=== PATIENT | female | born 1995 | race Caucasian/White ===

== ENCOUNTER 2022-10-02 07:13 | Inpatient (IN) ==
[2022-10-02] MEDS ORDERED: LIDOCAINE 1% LOCAL 20 ML VIAL INFIL PRN (08:39)
[2022-10-02] MEDS ORDERED: OXYTOCIN 30 UNITS/500 ML BAG IV PRN (08:39)
[2022-10-02] MEDS ORDERED: CALCIUM CARBONATE 500 MG CHEWABLE TAB PO PRN (08:44)
[2022-10-02] MEDS: LACTATED RINGER'S 1,000 ML IV PRN (09:14)
[2022-10-02] MEDS: FAMOTIDINE 20 MG TAB PO SCH (09:15)
[2022-10-02] MEDS: CALCIUM CARBONATE 500 MG CHEWABLE TAB PO PRN (09:15)
[2022-10-02 09:25] LABS: Hematocrit (blood only) 35.2 % (37.0-47.0); Hemoglobin 11.7 g/dl (12.0-16.0); Mean Corpuscular Hemoglobin 28.3 pg (25.0-34.0); Mean Corpuscular Hgb Conc 33.2 g/dL (32.0-36.0); Mean Corpuscular Volume 85.2 fL (80.0-100.0); Mean Platelet Volume 9.5 fL (9.4-12.4); Platelet Count 168 K/uL (130-400); RDW Coefficient of Variation 18.5 % (11.5-14.5); RDW Standard Deviation 57.1 fL (36.4-46.3); Red Blood Count 4.13 M/uL (4.20-5.40); White Blood Count 10.51 K/ul (4.8-10.8)
[2022-10-02] MEDS ORDERED: VANCOMYCIN HCL 1,000 MG in SODIUM CHLORIDE 0.9% 250 ML IV STA (09:55)
--- NOTE | 2022-10-02 09:59 | History & Physical Report ---
Date of Service October 02, 2022 Assessment & Plan Admission and Anticipated Discharge Date Admission Date: October 02, 2022 History of Present Illness Chief Complaint: induction of labor Primary Care Provider: MANA[employer] PCP 27 F P1001 at 40.3 weeks admitted for induction of labor for post-dates . GBS is negative and Covid is negative. Allergies Allergy/AdvReac Type Severity Reaction Status Date / Time Penicillins Allergy Hives Verified 10/02/22 07:41 Home Medications Medication Instructions Recorded Confirmed Type calcium carbonate 200 mg calcium 200 mg PO BID 10/02/22 10/02/22 History (500 mg) chewable tablet (Tums) docusate sodium 100 mg capsule 100 mg PO DAILY 10/02/22 10/02/22 History famotidine-Ca carb-mag hydrox 10 1 tab PO DAILY 10/02/22 10/02/22 History mg-800 mg-165 mg chewable tablet (Pepcid Complete) prenat.vits,romulo,urd-duub-qoplo 1 tab PO DAILY 10/02/22 10/02/22 History Patient History Medical History Anxiety (normal spontaneous vaginal delivery) 05/10/2020 Surgical History 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 H/O right knee surgery 2016 Meniscus repair Social History Smoking Status: Never smoker Hx Alcohol Use: No Hx Substance Use: No Preferred Language: Nigerien [employer] Required: No Beliefs That Will Affect Care: None marital status: Current Living Situation: Spouse Current Living Situation Comment: and son Assistive Devices: None 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 Review of Systems All systems reviewed & are unremarkable except as noted in HPI & below Physical Exam Constitutional: WD/WN, vitals as above Eyes: PERRL, conjunctivae normal, anicteric sclerae Respiratory: normal respiratory effort, lungs clear to auscultation Cardiovascular: Rate/Rhythm: regular rate Gastrointestinal (Abdomen): Percussion/Palpation: abdomen soft Skin: no rashes, warm and dry Neurologic: patellar DTR's 2+ bilat, sensation intact Psychiatric: A+Ox3, euthymic affect Genitourinary: Manual OB Exam: + cervical dilation 1 cm, + cervical effacement 50% and + station high OB Exam Monitor Tracing: + external FHT monitor used, + external uterine monitor used, + category I and + normal FHT variability Will start Cytotec 50 mcg PO every 4 hours for cervical ripening Results & Data Vital Signs (Past 12 Hours) Vital Signs Temp Pulse Resp BP 10/02/22 07:52 90 125/72 10/02/22 07:51 36.7 C 18 Laboratory Results 10/02/22 10/02/22 07:20 09:05 WBC 10.51 RBC 4.13 L Hgb 11.7 L Hct 35.2 L MCV 85.2 MCH 28.3 MCHC 33.2 RDW Std Deviation 57.1 H RDW Coeff of Devika 18.5 H Plt Count 168 MPV 9.5 SARS-CoV-2, RNA, NAAT NEGATIVE Monitoring External Monitor Cat 1
[2022-10-02] MEDS: miSOPROStoL 50 MCG TAB PO SCH ×2 (10:03→15:21)
--- NOTE | 2022-10-02 15:00 | Labor Progress Brief Note ---
Date of Service October 02, 2022 Assessment & Plan Admission and Anticipated Discharge Date Admission Date: October 02, 2022 Physical Exam Genitourinary: Manual OB Exam: + cervical dilation 1 cm, + cervical effacement 50% and + station high OB Exam Monitor Tracing: + external FHT monitor used, + external uterine monitor used, + category I and + normal FHT variability will place Astudillo balloon in cervix for ripening Results & Data Vital Signs (Past 12 Hours) Vital Signs Temp Pulse Resp BP 10/02/22 12:04 18 10/02/22 12:04 36.6 C 18 10/02/22 12:06 65 120/71 10/02/22 07:29 18 10/02/22 07:29 18 10/02/22 07:52 90 125/72 10/02/22 07:51 36.7 C 18
--- NOTE | 2022-10-02 15:31 | Labor Progress Brief Note ---
Date of Service October 02, 2022 Assessment & Plan Admission and Anticipated Discharge Date Admission Date: October 02, 2022 Physical Exam Genitourinary: Manual OB Exam: + cervical dilation 1 cm, + cervical effacement 50% and + station high OB Exam Monitor Tracing: + external FHT monitor used, + external uterine monitor used, + category I and + normal FHT variability Astudillo with 35 ml saline placed in cervix Results & Data Vital Signs (Past 12 Hours) Vital Signs Temp Pulse Resp BP 10/02/22 14:57 18 10/02/22 14:57 37.0 C 18 10/02/22 15:00 73 124/73 10/02/22 12:04 18 10/02/22 12:04 36.6 C 18 10/02/22 12:06 65 120/71 10/02/22 07:29 18 10/02/22 07:29 18 10/02/22 07:52 90 125/72 10/02/22 07:51 36.7 C 18
[2022-10-02] MEDS ORDERED: BUTORPHANOL TARTRATE 1 MG/ML VIAL IV PRN (20:25)
[2022-10-02] MEDS: VANCOMYCIN HCL 1,000 MG in SODIUM CHLORIDE 0.9% 250 ML IV PRN (22:43)
[2022-10-03] MEDS ORDERED: FAMOTIDINE 20 MG TAB PO ONE (00:09)
[2022-10-03] MEDS: CALCIUM CARBONATE 500 MG CHEWABLE TAB PO PRN ×2 (00:15→16:39)
[2022-10-03] MEDS: miSOPROStoL 50 MCG TAB PO SCH ×2 (06:28→07:46)
[2022-10-03] MEDS ORDERED: OXYTOCIN 30 UNITS/500 ML BAG IV PRN ×2 (09:17→19:16)
--- NOTE | 2022-10-03 09:24 | Obstetrical Progress Note ---
Date of Service October 03, 2022 Assessment & Plan Admission and Anticipated Discharge Date Admission Date: October 02, 2022 Subjective Patient was seen and examined. G2, P1 at 40 weeks and 4 days of gestation she was admitted yesterday by Dr. Waddell for induction of labor for postdates. She has received p.o. Cytotec and then Astudillo balloon which came out around 3 AM this morning. She had another dose of Cytotec since this morning at 6:30 AM. She feels contractions every 4 minutes and are not very painful. She desires to eat breakfast. GBS positive, received vancomycin last night Vital signs stable afebrile, heart rate category 1, Cervix is 2 to 3 cm, 50% effaced, posterior, soft, head is at -3 station Plan to start oxytocin, continue with vancomycin, epidural for pain and AROM when able, All questions were answered. Results & Data Vital Signs (Past 12 Hours) Vital Signs Temp Pulse Resp BP 10/03/22 07:00 36.8 C 20 10/03/22 09:17 72 127/71 10/03/22 07:01 69 126/60 10/03/22 03:37 36.7 C 54 L 16 117/65 10/02/22 22:48 36.7 C 65 16 113/56 L
[2022-10-03] MEDS: FAMOTIDINE 20 MG TAB PO SCH ×2 (10:20→19:43)
[2022-10-03] MEDS: VANCOMYCIN HCL 1,000 MG in SODIUM CHLORIDE 0.9% 250 ML IV PRN (10:20)
[2022-10-03] MEDS ORDERED: Nursing to Pharmacy Communication SCH (11:15)
[2022-10-03] MEDS ORDERED: SODIUM CHLORIDE 0.9% PF INJ 10 ML VIAL ONE (13:47)
[2022-10-03] MEDS ORDERED: BUPIVACAINE 0.25% PF 30 ML VIAL ONE (13:47)
[2022-10-03] MEDS ORDERED: LIDOCAINE 2%/EPINEPHRINE 1:200,000 20 ML PF ONE (13:47)
[2022-10-03] MEDS ORDERED: fentaNYL 2MCG/ML ROPIVACAINE 1.25MG/ML 100 ML BAG EPI ONE (13:47)
[2022-10-03] MEDS ORDERED: fentaNYL citrate PF 100 MCG/2 ML VIAL ONE (13:47)
[2022-10-03] MEDS ORDERED: ePHEDrine sulfate 50 MG/ML AMP ONE (13:48)
[2022-10-03] MEDS: LACTATED RINGER'S 1,000 ML IV PRN ×2 (14:02→15:01)
--- NOTE | 2022-10-03 14:48 | Anesthesiology Consultation ---
Date of Service October 03, 2022 Assessment & Plan (1) Encounter for pre-operative examination: Chart Review Chart Review: Acceptable Risk for Labor Epidural History Height/Weight Height: 6 ft Weight: 109.769 kg Allergies Allergy/AdvReac Type Severity Reaction Status Date / Time Penicillins Allergy Hives Verified 10/02/22 07:41 Medications Home Medications Medication Instructions Recorded Confirmed Last Taken calcium carbonate 200 mg calcium 200 mg PO BID 10/02/22 10/02/22 10/01/22 (500 mg) chewable tablet (Tums) docusate sodium 100 mg capsule 100 mg PO DAILY 10/02/22 10/02/22 10/01/22 famotidine-Ca carb-mag hydrox 10 1 tab PO DAILY 10/02/22 10/02/22 10/01/22 mg-800 mg-165 mg chewable tablet (Pepcid Complete) prenat.vits,romulo,zhw-[id number]-[id number] 1 tab PO DAILY 10/02/22 10/02/22 10/01/22 Active Medications Generic Name Dose Route Start Last Admin Trade Name Nilsonq PRN Reason Stop Dose Admin Calcium Carbonate 1,000 mg 10/02/22 09:15 10/03/22 00:15 Calcium Carbonate 500 Mg Chewable Tab PO 11/01/22 08:43 1,000 mg BID PRN Administration Indigestion Famotidine 20 mg 10/02/22 09:00 10/03/22 10:20 Famotidine 20 Mg Tab PO 11/01/22 08:59 Not Given QAM GELY Lactated Ringer's 1,000 mls @ 125 mls/hr 10/02/22 08:39 10/03/22 14:02 Lr IV 10/04/22 08:38 999 mls/hr .Q8H PRN Administration L&D Protocol Protocol Vancomycin HCl 1,000 mg/ 270 mls @ 200 mls/hr 10/02/22 20:49 10/03/22 11:41 Sodium Chloride IV 10/12/22 20:48 Infused Q12H PRN Infusion GBS(+) Until Delivery Oxytocin 30 units in 500 mls @ 8 mls/hr 10/03/22 09:17 10/03/22 12:30 Pitocin IV 10/05/22 09:16 0.48 units/hr .Q24H PRN 8 mls/hr Labor Induction/Augmentation Titration Protocol 0.48 UNITS/HR Past Medical History Medical History Anxiety (normal spontaneous vaginal delivery) 05/10/2020 Past Surgical History Surgical History 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
[2022-10-03] MEDS ORDERED: LIDOCAINE 2%/EPINEPHRINE 1:200,000 20 ML PF EPI STA (15:17)
[2022-10-03] MEDS ORDERED: ROPIVACAINE 0.5% PF 5 MG/ML 20 ML VIAL EPI PRN (15:17)
[2022-10-03] MEDS ORDERED: SODIUM CHLORIDE 0.9% PF INJ 10 ML VIAL EPI PRN (15:17)
[2022-10-03] MEDS ORDERED: NALOXONE HCL 0.4 MG/1 ML VIAL/CARP IV PRN (15:17)
[2022-10-03] MEDS ORDERED: BUPIVACAINE 0.25% PF 30 ML VIAL EPI PRN (15:17)
[2022-10-03] MEDS ORDERED: NALOXONE HCL 1 MG in SODIUM CHLORIDE 0.9% 1000ML 1,000 ML IV PRN (15:17)
[2022-10-03] MEDS ORDERED: ePHEDrine sulfate 50 MG/ML AMP IV PRN (15:17)
[2022-10-03] MEDS ORDERED: fentaNYL 2MCG/ML ROPIVACAINE 1.25MG/ML 100 ML BAG EPI PRN (15:17)
[2022-10-03] MEDS ORDERED: fentaNYL citrate PF 100 MCG/2 ML VIAL EPI PRN (15:17)
[2022-10-03] MEDS ORDERED: ONDANSETRON INJ 2 MG/ML 2 ML VIAL IV PRN (15:17)
[2022-10-03] MEDS ORDERED: BUPIVACAINE 0.25% PF 30 ML VIAL EPI STA (15:17)
[2022-10-03] MEDS ORDERED: LIDOCAINE 2% MPF LOCAL 5 ML VIAL EPI PRN (15:17)
[2022-10-03] MEDS ORDERED: SODIUM CHLORIDE 0.9% PF INJ 10 ML VIAL EPI STA (15:17)
--- NOTE | 2022-10-03 16:12 | Obstetrical Progress Note ---
Date of Service October 03, 2022 Assessment & Plan Admission and Anticipated Discharge Date Admission Date: October 02, 2022 Subjective Patient is comfortable, received epidural for pain VE; 4/ 60%-2, AROM'ed clear fluid FHR categ I Contractions q 2-3 min, Oxytocin is at 4miu/min Continue to monitor closely Results & Data Vital Signs (Past 12 Hours) Vital Signs Temp Pulse Resp BP Pulse Ox 10/03/22 07:00 36.8 C 20 10/03/22 16:05 67 100 10/03/22 16:02 78 84 L 10/03/22 16:00 69 99 10/03/22 15:57 67 112/58 L 10/03/22 15:55 73 87 L 10/03/22 15:50 62 100 10/03/22 15:51 49 L 114/64 10/03/22 15:47 60 115/63 10/03/22 15:45 71 100 10/03/22 15:42 65 114/62 10/03/22 15:40 68 99 10/03/22 15:37 65 110/63 10/03/22 15:35 64 20 100 10/03/22 15:31 62 107/68 10/03/22 15:30 65 100 10/03/22 15:26 71 92 10/03/22 15:25 65 107/65 99 10/03/22 15:23 65 112/66 10/03/22 15:21 71 111/69 10/03/22 15:20 68 20 99 10/03/22 15:19 66 111/68 10/03/22 15:18 61 108/59 L 10/03/22 15:15 73 100 10/03/22 15:16 74 106/73 10/03/22 15:14 75 112/56 L 10/03/22 15:13 20 10/03/22 15:13 20 10/03/22 15:12 58 L 116/58 L 10/03/22 15:10 72 97 10/03/22 15:05 73 100 10/03/22 15:03 74 90 10/03/22 15:00 69 100 10/03/22 14:56 76 89 L 10/03/22 14:55 69 100 10/03/22 14:50 61 100 10/03/22 14:44 62 100 10/03/22 14:39 69 98 10/03/22 14:36 71 92 10/03/22 14:34 66 100 10/03/22 14:29 64 99 10/03/22 14:24 61 100 10/03/22 14:19 74 99 10/03/22 14:14 68 100 10/03/22 14:09 70 100 10/03/22 14:04 65 99 10/03/22 13:41 36.8 C 78 20 118/75 10/03/22 12:30 68 119/70 10/03/22 11:33 36.8 C 66 20 113/53 L 10/03/22 10:31 76 121/70 10/03/22 09:17 36.8 C 72 20 127/71 10/03/22 07:01 69 126/60
[2022-10-03] MEDS ORDERED: BENZOCAINE 20% AER SPR 82.5 GM CAN EXT PRN (19:16)
[2022-10-03] MEDS ORDERED: MEASLES, MUMPS & RUBELLA VIRUS VIAL SQ ONE (19:16)
[2022-10-03] MEDS ORDERED: IBUPROFEN 600 MG TAB PO PRN (19:16)
[2022-10-03] MEDS ORDERED: bisacodyL 10 MG SUPP PR PRN (19:16)
[2022-10-03] MEDS ORDERED: ACETAMINOPHEN 325 MG TAB PO PRN (19:16)
[2022-10-03] MEDS ORDERED: HYDROCORTISONE ACETATE 25 MG SUPP PR PRN (19:16)
[2022-10-03] MEDS ORDERED: oxyCODONE/ACETAMINOPHEN 5mg/325mg TAB PO PRN (19:16)
[2022-10-03] MEDS ORDERED: DIPHTHERIA/TETANUS/PERTUSSIS Vaccine (Tdap, Age 7+yrs) 0.5mL SYR/VL IM ONE (19:16)
--- NOTE | 2022-10-03 19:22 | Delivery Summary ---
Vaginal Delivery Summary Date of Service October 03, 2022 Vaginal Delivery Summary Patient was found to be fluid dilated and desire to push. She pushed through 2 contractions and deliver the head without difficulty. Anterior/ left shoulder was coming with the head spontaneously. It was delivered and then body without difficulty. There was a nuchal cord evaluated which was reduced and the baby was handed off to the mother. Motor nerves were suctioned, the cord was clamped times 2 and cut at 1 minute delay. The baby was vigorously moving and crying at that point. Then the vagina and perineum were checked for lacerations. There was a small second-degree laceration at the posterior fourchette. It was repaired with 2-0 Vicryl, bringing the mucosa together, superficial level of muscles continuously and the skin on the subcuticular fashion. Excellent hemostasis achieved. The placenta was found in the vagina, spontaneously delivered as intact and complete. The uterus was explored and found to be empty, the lower segment was cleared of all clots and debris, uterus firm and EBL was 200 mL. The mom and baby tolerated procedure well. The sponge needle instrument count was correct x2. There was a viable female infant, Apgars 8/9 and weight is pending. No complications happened and I was present during whole procedure.
--- NOTE | 2022-10-03 20:18 | Anesthesia Procedure Note ---
Date of Service October 03, 2022 Anesthesia Post Epidural Note Vital Signs Vital Signs: Temp Pulse Resp BP Pulse Ox O2 Del Method 36.7 C 71 18 129/61 85 L Room Air 10/03/22 19:10 10/03/22 20:14 10/03/22 19:55 10/03/22 20:14 10/03/22 19:03 10/02/22 19:45 Notes Mental Status: alert / awake / arousable and participated in evaluation Nausea / Vomiting: adequately controlled Pain: adequately controlled Airway Patency, RR, SpO2: stable & adequate BP & HR: stable & adequate Hydration State: stable & adequate Neuraxial Anesthesia: was administered and sensory block is resolving Anesthetic Complications: no major complications apparent Epidural: Removed without complications and With tip intact
[2022-10-03] MEDS ORDERED: DOCUSATE SODIUM 100 MG CAP PO SCH (21:00)
[2022-10-04 06:23] LABS: Hematocrit (blood only) 31.2 % (37.0-47.0); Hemoglobin 10.3 g/dl (12.0-16.0); Mean Corpuscular Hemoglobin 27.9 pg (25.0-34.0); Mean Corpuscular Volume 84.6 fL (80.0-100.0); Platelet Count 148 K/uL (130-400); RDW Standard Deviation 55.3 fL (36.4-46.3); Red Blood Count 3.69 M/uL (4.20-5.40); White Blood Count 12.49 K/ul (4.8-10.8)
[2022-10-04] MEDS ORDERED: FERROUS SULFATE 325 MG TAB PO SCH ×2 (08:00)
[2022-10-04] MEDS ORDERED: PRENATAL VITAMIN 1 TAB PO SCH ×2 (08:00)
--- NOTE | 2022-10-04 08:04 | Obstetrical Progress Note ---
Date of Service October 04, 2022 Assessment & Plan (1) Normal course: Continue routine PP course Dc home today if baby is discharged and stable Subjective Ambulation: ambulating normally Voiding: no voiding problems Passing Gas:: Yes Diet Tolerance:: regular diet Lochia:: Moderate Feeding Type:: breast feeding Current Pain Level(1-10): 5 Patient comfortable in bed, bonding well with baby. Would like to go home today if baby is discharged Breast and formula feeding Pain controlled with Tylenol, cannot take NSAIDs due to history of gastric bypass (sleeve) Physical Exam Constitutional WD/WN, vitals as above Respiratory normal respiratory effort, lungs clear to auscultation Cardiovascular RRR, no murmur, no edema Gastrointestinal (Abdomen) normal bowel sounds, soft, nontender, no hepatosplenomegaly Fundus below U Results & Data Vital Signs (Past 12 Hours) Vital Signs Temp Pulse Pulse Pulse Resp BP BP 10/04/22 07:50 36.5 C 98 H 18 123/79 10/04/22 04:01 36.5 C 65 16 98/59 L 10/03/22 22:20 36.6 C 86 20 120/75 10/03/22 21:10 18 10/03/22 20:40 18 10/03/22 20:10 18 10/03/22 21:10 92 H 124/63 10/03/22 20:55 73 122/59 L 10/03/22 20:40 112/55 L 10/03/22 20:25 74 108/57 L 10/03/22 20:14 71 129/61 Pulse Ox O2 Del Method 10/04/22 07:50 98 Room Air 10/04/22 04:01 Room Air 10/03/22 22:20 96 Room Air 10/03/22 21:10 10/03/22 20:40 10/03/22 20:10 10/03/22 21:10 10/03/22 20:55 10/03/22 20:40 10/03/22 20:25 10/03/22 20:14 Laboratory Results Laboratory Results WBC 12.49 K/ul (4.8-10.8) H 10/04/22 05:55 RBC 3.69 M/uL (4.20-5.40) L 10/04/22 05:55 Hgb 10.3 g/dl (12.0-16.0) L 10/04/22 05:55 Hct 31.2 % (37.0-47.0) L 10/04/22 05:55 MCV 84.6 fL (80.0-100.0) 10/04/22 05:55 MCH 27.9 pg (25.0-34.0) 10/04/22 05:55 MCHC 33.0 g/dL (32.0-36.0) 10/04/22 05:55 RDW Std Deviation 55.3 fL (36.4-46.3) H 10/04/22 05:55 RDW Coeff of Devika 18.0 % (11.5-14.5) H 10/04/22 05:55 Plt Count 148 K/uL (130-400) 10/04/22 05:55 MPV 10.0 fL (9.4-12.4) 10/04/22 05:55 SARS-CoV-2, RNA, NAAT NEGATIVE (NEGATIVE) 10/02/22 07:20
[2022-10-04] MEDS ORDERED: bisacodyL 10 MG SUPP PR PRN (08:17)
[2022-10-04] MEDS ORDERED: oxyCODONE/ACETAMINOPHEN 5mg/325mg TAB PO PRN (08:17)
[2022-10-04] MEDS ORDERED: HYDROCORTISONE ACETATE 25 MG SUPP PR PRN (08:17)
[2022-10-04] MEDS ORDERED: BENZOCAINE 20% AER SPR 82.5 GM CAN EXT PRN (08:18)
[2022-10-04] MEDS ORDERED: OXYTOCIN 30 UNITS/500 ML BAG IV PRN (08:18)
[2022-10-04] MEDS ORDERED: DIPHTHERIA/TETANUS/PERTUSSIS Vaccine (Tdap, Age 7+yrs) 0.5mL SYR/VL IM ONE (08:30)
[2022-10-04] MEDS ORDERED: MEASLES, MUMPS & RUBELLA VIRUS VIAL SQ ONE (08:30)
[2022-10-04] MEDS: FAMOTIDINE 20 MG TAB PO SCH ×3 (08:48→20:03)
[2022-10-04] MEDS: ACETAMINOPHEN 325 MG TAB PO PRN ×2 (08:49→16:11)
[2022-10-04] MEDS ORDERED: SOD PHOSPHATE/SOD BIPHOSPHATE ENEMA 132 ML BTL PR PRN (17:11)
[2022-10-04] MEDS ORDERED: SOD PHOSPHATE/SOD BIPHOSPHATE ENEMA 132 ML BTL PR STA (17:20)
[2022-10-04] MEDS ORDERED: bisacodyL 5 MG TABEC PO SCH ×2 (20:00)
[2022-10-04] MEDS ORDERED: DOCUSATE SODIUM 100 MG CAP PO SCH (21:00)
[2022-10-05] MEDS ORDERED: PRENATAL VITAMIN 1 TAB PO SCH (08:00)
== END 2022-10-04 20:51 | disposition home or self-care (01) | DRG 807 ==
LOC: 4S1 07:13 → 4E2 10-03 21:55